=== PATIENT | male | born 1990 | race American Indian/Alaskan Native ===

== ENCOUNTER 2016-10-20 20:06 | Emergency (ER) | payer OTHER, BC ==
[2016-10-20 20:06] VITALS: BMI 38.7
[2016-10-20 20:15] VITALS: BP 130/83; PULSE 64; RESP 18; TEMP 99; O2SAT 99
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
== END 2016-10-20 21:26 | disposition left against medical advice (07) ==
LOC: ED 20:06
DX: Z04.1 Encounter for examination and observation following transport accident (principal)